=== PATIENT | male | born 1990 | race Caucasian/White ===

== ENCOUNTER 2016-11-26 15:35 | Emergency (ER) | payer OTHER ==
[~2016-11-26 15:35] MED LIST: ABILIFY; ATIVAN PO; CONCERTA PO; FLEXERIL10 MG PO; LITHIUM PO; NAPROSYN500 MG PO; NO MEDICATIONS; ORUDIS75 M1 PO
== END 2016-11-26 16:10 | disposition home or self-care (01) ==
LOC: SED 15:35
DX: J30.9 Allergic rhinitis, unspecified (principal); F31.9 Bipolar disorder, unspecified; F90.9 Attention-deficit hyperactivity disorder, unspecified type; F17.200 Nicotine dependence, unspecified, uncomplicated; Z88.8 Allergy status to other drugs, medicaments and biological substances
CPT/HCPCS: 99283